=== PATIENT | male | born 1985 | race Caucasian/White ===

== ENCOUNTER 2020-07-12 21:17 | Emergency (ER) | payer OTHER ==
[~2020-07-12] VITALS: Ht 182.9 cm; Wt 83.9 kg
[2020-07-12 22:02] VITALS: BP 123/69
[2020-07-12] MEDS ORDERED: TDAP [DIPH/PERTUSSIS/TET] 0.5 ML VIAL IM ONE ×2 (22:10→22:30)
[2020-07-12] MEDS ORDERED: AMOX/CLAVULANATE 875 MG TABLET ONE (22:10)
[2020-07-12] MEDS ORDERED: AMOX/CLAVULANATE 875 MG TABLET PO ONE (22:30)
== END 2020-07-12 22:22 | disposition home or self-care (01) ==
LOC: ER 21:22
DX: S70.311A Abrasion, right thigh, initial encounter (principal); S61.451A Open bite of right hand, initial encounter; Z23 Encounter for immunization; W54.0XXA Bitten by dog, initial encounter; Y93.89 Activity, other specified; Y92.89 Other specified places as the place of occurrence of the external cause; Y99.8 Other external cause status
CPT/HCPCS: 90715

== ENCOUNTER 2021-05-08 17:52 | Emergency (ER) | payer BC, OTHER ==
[~2021-05-08] VITALS: Ht 180.3 cm; Wt 99.8 kg
--- NOTE | 2021-05-08 17:57 | NUR ---
[facility] to ER, mother called 911 for his erratic behaviour.
--- NOTE | 2021-05-08 18:00 | NUR ---
The patient is BIBRA due to mother called 911; the patient acts up at home- punched the mirror in the closet - upset about the " pandemic". The patient is agitated. Alert and oriented x1. Able to communicate verbally. Patient has clear speech. In room air and denies SOB. Respiration regular and unlabored. Will continue to monitor the patient.
[2021-05-08] MEDS ORDERED: LORAZEPAM INJ 2 MG/ML VIAL ONE (18:04)
[2021-05-08] MEDS: LORAZEPAM INJ 2 MG/ML VIAL IM ONE (18:10)
[2021-05-08 18:37] LABS: BASOPHILS % (AUTO) 0.4 % (0.0-2.0); EOSINOPHILS % (AUTO) 0.4 % (0.0-6.0); HEMATOCRIT 44 % (39-51); HEMOGLOBIN 14.9 g/dL (13.5-17.5); LYMPHOCYTES # (AUTO) 1.8 K/uL (0.8-4.8); LYMPHOCYTES % (AUTO) 18.8 % (20.0-44.0); MEAN CORPUSCULAR HGB CONC 34 g/dl (31.0-36.0); MEAN CORPUSCULAR VOLUME 90 fL (80-96); MONOCYTES # (AUTO) 0.7 K/uL (0.1-1.30); MONOCYTES % (AUTO) 7.6 % (2.0-12.0); NEUTROPHILS # (AUTO) 6.9 K/uL (1.8-8.9); NEUTROPHILS % (AUTO) 72.8 % (43.0-81.0); PLATELET COUNT (AUTO) 296 K/uL (150-450); RED BLOOD CELL COUNT(AUTO) 4.89 MIL/uL (4.5-6.0); WHITE BLOOD COUNT (AUTO) 9.5 K/uL (4.3-11.0)
[2021-05-08 18:48] LABS: CALCIUM, SERUM 9.2 mg/dL (8.5-10.1); CARBON DIOXIDE 27 mmol/L (21-32); CHLORIDE 103 mmol/L (98-107); GLUCOSE 101 mg/dL (74-106); POTASSIUM 3.9 mmol/L (3.5-5.1); SODIUM SERUM 140 mmol/L (136-145); UREA NITROGEN, BLOOD 13 mg/dL (7-18)
--- NOTE | 2021-05-08 18:49 | NUR ---
urine collected and sent to the lab
[2021-05-08] MEDS ORDERED: TDAP [DIPH/PERTUSSIS/TET] 0.5 ML VIAL IM ONE (18:53)
[2021-05-08 18:54] LABS: ALANINE AMINOTRANSFERASE 26 U/L (12-78); ALBUMIN 4.2 g/dL (3.4-5.0); ALKALINE PHOSPHATASE 99 U/L (46-116); ASPARTATE AMINOTRANSFERASE 17 U/L (15-37); BILIRUBIN,DIRECT 0.1 mg/dL (0.0-0.2); BILIRUBIN,TOTAL 0.5 mg/dL (0.2-1.0); TOTAL PROTEIN, SERUM 8.1 g/dL (6.4-8.2)
[2021-05-08] MEDS: TDAP [DIPH/PERTUSSIS/TET] 0.5 ML VIAL IM ONE (18:54)
[2021-05-08 18:58] LABS: ACETAMINOPHEN < 2 ug/ml (10-30); ALCOHOL, BLOOD < 3 mg/dL (0-0)
--- NOTE | 2021-05-08 18:59 | NUR ---
The patient is alert and oriented to self. Denies pain. In room air and denies SOB. Respiration regular and unlabored. Refuses to have dinner at this time.
[2021-05-08 19:04] LABS: BILIRUBIN,URINE Negative (NEGATIVE); COLOR,URINE YELLOW (YELLOW); LEUKOCYTE ESTERASE ,URINE Negative (NEGATIVE); NITRITE, URINE Negative (NEGATIVE); PROTEIN,URINE Trace mg/dl (NEGATIVE); UGLUCOSE Negative (NEGATIVE); UROBILINOGEN,URINE 0.2 EU/dL (0.2)
--- NOTE | 2021-05-08 19:12 | NUR ---
TAX LAWYER AT BEDSIDE FOR XRAY PROCEDURE
[2021-05-08 19:26] LABS: BACTERIA,URINE Rare /HPF (None Seen); SQUAMOUS EPITHELIAL CELL,UR Few /HPF (None Seen); WBC,URINE NONE SEEN /HPF (0-3)
--- NOTE | 2021-05-08 20:35 | NUR ---
PATIENT'S LEFT PINKY CLEANED ASEPTICALLY WITH NORMAL SALINE.
--- NOTE | 2021-05-08 21:43 | NUR ---
GEORGIE, MOTHER LEFT NUMBER. [phone]
--- NOTE | 2021-05-08 23:44 | NUR ---
[facility] DRY WALL PLASTERER AT BEDSIDE INTERVIEWING PATIENT.
[2021-05-09] MEDS ORDERED: HALOPERIDOL LACTATE INJ 5 MG/ML VIAL ONE (00:06)
[2021-05-09] MEDS: HALOPERIDOL LACTATE INJ 5 MG/ML VIAL IM ONE (00:11)
--- NOTE | 2021-05-09 01:11 | NUR ---
PATIENT IS SLEEPING. EASILY AROUSABLE THROUGH VERBAL STIMULI. PATIENT IS CONNECTED TO THE CHIEF CONSTRUCTION INSPECTOR. PATIENT'S CHEST IS RISING AND FALLING EVENLY. SITTER IS AT BEDSIDE. SIDE RAILS ARE UP FOR SAFETY. WILL CONTINUE TO MONITOR PATIENT CLOSELY.
--- NOTE | 2021-05-09 05:23 | NUR ---
PATIENT IS ASLEEP. PATIENT IS EASILY AROUSABLE THROUGH VOICE. PATIENT IS BREATHING EVENLY AND UNLABORED ON ROOM AIR AT 97% O2 SATURATION. PATIENT IS CONNECTED TO THE BELTING INSPECTOR. PATIENT'S SIDE RAILS ARE UP FOR SAFETY. BED AT THE LOWEST POSITION. SITTER IS AT BEDSIDE.
--- NOTE | 2021-05-09 08:36 | NUR ---
PATIENT SLEEPING, IN NO DISTRESS NOTED.
--- NOTE | 2021-05-09 10:16 | NUR ---
DARIUS ORLANDO IS ON HIS WAY.
--- NOTE | 2021-05-09 10:45 | NUR ---
YU SORIANO AT BEDSIDE FOR RE-EVAL.
[2021-05-09] MEDS ORDERED: ARIP5TAB10 PO (11:40)
--- NOTE | 2021-05-09 12:02 | NUR ---
PATIENT A/OX4, BREATHING EVEN AND UNLABORED, NO SOB NOTED, NEEDS ATTENDED. KEPT COMFORTABLE. DENIES SI/HI AT THIS TIME. Patient discharged to home in stable condition. Written and verbal after care instructions given. Patient verbalizes understanding of instruction. PARENTS AT BEDSIDE.
[2021-05-09 12:03] VITALS: BP 106/60
== END 2021-05-09 12:04 | disposition home or self-care (01) ==
LOC: ER 18:03
DX: S61.412A Laceration without foreign body of left hand, initial encounter (principal); F23 Brief psychotic disorder; R45.851 Suicidal ideations; W25.XXXA Contact with sharp glass, initial encounter; Y93.89 Activity, other specified; Y92.89 Other specified places as the place of occurrence of the external cause; Y99.8 Other external cause status
CPT/HCPCS: 36415; 73120; 80048; 80076; 80143; 80307; 80320; 81001; 84484; 85025; 90471; 90715; 96372 ×2; 99285; A6403; J1630; J2060; G0480